=== PATIENT | female | born 1995 | race Caucasian/White ===

== ENCOUNTER 2017-06-08 06:44 | Inpatient (IN) | payer BC, MEDICAID ==
[~2017-06-08] VITALS: Ht 162.6 cm; Wt 120.5 kg
[2017-06-10] MEDS ORDERED: OXYTOCIN 30U/ 0.9% NaCL 500ML 500 ML IV ONE (22:01)
[2017-06-10] MEDS: D5%-LACTATED RINGERS 1,000 ML IV SCH (22:01)
[2017-06-10] MEDS ORDERED: OXYTOCIN 30U/ 0.9% NaCL 500ML 500 ML IV PRN (22:01)
[2017-06-10 22:04] VITALS: BP 136/77
[2017-06-10] MEDS: LACTATED RINGERS 1,000 ML IV SCH (22:10)
[2017-06-10] MEDS ORDERED: CALCIUM CARBONATE 500 MG TAB.CHEW PO PRN (22:30)
[2017-06-10] MEDS ORDERED: ONDANSETRON 2MG/ML, 2ML IVPush PRN (22:30)
[2017-06-10] MEDS ORDERED: FENTANYL PF 100 MCG/2ML IV PRN (22:30)
[2017-06-10 22:31] LABS: BASOPHILS # (AUTO) 0.04 x10^3/uL (0-0.3); BASOPHILS % (AUTO) 0 % (0-1); EOSINOPHILS # (AUTO) 0.08 x10^3/uL (0-0.8); EOSINOPHILS % (AUTO) 1 % (1-7); LYMPHOCYTES # (AUTO) 1.49 x10^3/uL (1-6.1); LYMPHOCYTES % (AUTO) 14 % (22-44); MD NO; MEAN CORPUSCULAR HEMOGLOBIN 28.4 pg (27.0-34.8); MEAN CORPUSCULAR HGB CONC 33.2 g/dL (32.4-35.8); MEAN CORPUSCULAR VOLUME 85.6 fL (80-100); MEAN PLATELET VOLUME 10.8 fL (7.4-10.4); MONOCYTES # (AUTO) 0.51 x10^3/uL (0-1.4); MONOCYTES % (AUTO) 5 % (2-9); NEUTROPHILS # (AUTO) 8.83 x10^3/uL (1.8-8.0); NEUTROPHILS % (AUTO) 81 % (42-75); PLATELET COUNT 221 x10^3/uL (130-400); RED BLOOD COUNT 4.23 x10^6/uL (3.82-5.3); RED CELL DISTRIBUTION WIDTH 14.5 % (9.6-15.2)
[2017-06-10] MEDS ORDERED: LIDOCAINE 1%, 20ML ONE (22:44)
[2017-06-10] MEDS ORDERED: NEWBORN KIT ONE (22:44)
[2017-06-10] MEDS ORDERED: MISOPROSTOL 200 MCG TABLET ONE (22:45)
[2017-06-10] MEDS ORDERED: OXYTOCIN 30U/ 0.9% NaCL 500ML 500 ML ONE (22:45)
[2017-06-10] MEDS ORDERED: FENTANYL PF 100 MCG/2ML ONE (23:09)
[2017-06-10] MEDS: FENTANYL PF 100 MCG/2ML IVPush PRN (23:11)
[2017-06-11] MEDS ORDERED: FENTANYL PF 100 MCG/2ML ONE ×2 (00:11→07:44)
[2017-06-11] MEDS: FENTANYL PF 100 MCG/2ML IVPush PRN (00:14)
[2017-06-11] MEDS ORDERED: BUPIVACAINE 0.25% ONE ×3 (00:23→07:44)
[2017-06-11] MEDS ORDERED: FENTANYL/BUPIV./NS/PF 250 ML EPIDCONT ONE (00:23)
[2017-06-11] MEDS ORDERED: FENTANYL/BUPIV./NS/PF 250 ML EPIDCONT SCH (01:01)
[2017-06-11] MEDS: LACTATED RINGERS 1,000 ML IV SCH ×3 (01:01→15:22)
[2017-06-11] MEDS ORDERED: LACTATED RINGERS 1,000 ML IVBOLUS PRN (01:30)
[2017-06-11] MEDS: D5%-LACTATED RINGERS 1,000 ML IV SCH (03:12)
[2017-06-11 07:15] VITALS: BP 137/72
[2017-06-11] MEDS ORDERED: PREN1TAB60 PO (08:01)
[2017-06-11] MEDS ORDERED: ACETAMINOPHEN 325 MG TABLET ONE (10:23)
[2017-06-11] MEDS ORDERED: ACETAMINOPHEN 325 MG TABLET PO PRN (10:30)
[2017-06-11] MEDS ORDERED: MISOPROSTOL 200 MCG TABLET SL PRN (12:00)
[2017-06-11] MEDS ORDERED: ONDANSETRON 2MG/ML, 2ML IV PRN (12:00)
[2017-06-11] MEDS ORDERED: OXYcodone/APAP 5/325MG TABLET PO PRN ×2 (12:00)
[2017-06-11] MEDS ORDERED: GLYCERIN ADULT SUPP PR PRN (12:00)
[2017-06-11] MEDS ORDERED: MAGNESIUM HYDROXIDE 8%, 30ML UDC PO PRN (12:00)
[2017-06-11] MEDS ORDERED: METHYLERGONOVINE 0.2 MG/ML IM PRN (12:00)
[2017-06-11] MEDS: OXYTOCIN 30U/ 0.9% NaCL 500ML 500 ML IV SCH ×2 (15:22→21:50)
[2017-06-11 15:40] VITALS: BP 116/68
[2017-06-11 17:58] VITALS: BP 110/73
[2017-06-11] MEDS: PRENATAL VIT/IRON/FA 1 EACH TABLET PO SCH (18:05)
[2017-06-11 19:30] VITALS: BP 144/63
[2017-06-11 19:37] LABS: MEAN CORPUSCULAR HEMOGLOBIN 28.8 pg (27.0-34.8); MEAN CORPUSCULAR HGB CONC 33.6 g/dL (32.4-35.8); MEAN CORPUSCULAR VOLUME 85.7 fL (80-100); MEAN PLATELET VOLUME 10.5 fL (7.4-10.4); PLATELET COUNT 215 x10^3/uL (130-400); RED BLOOD COUNT 3.31 x10^6/uL (3.82-5.3); RED CELL DISTRIBUTION WIDTH 14.8 % (9.6-15.2)
[2017-06-11 19:59] LABS: BASOPHILS # (AUTO) 0.01 x10^3/uL (0-0.3); BASOPHILS % (AUTO) 0 % (0-1); EOSINOPHILS # (AUTO) 0.06 x10^3/uL (0-0.8); EOSINOPHILS % (AUTO) 0 % (1-7); LYMPHOCYTES # (AUTO) 1.21 x10^3/uL (1-6.1); LYMPHOCYTES % (AUTO) 7 % (22-44); MD SCAN; MONOCYTES # (AUTO) 0.81 x10^3/uL (0-1.4); MONOCYTES % (AUTO) 5 % (2-9); NEUTROPHILS % (AUTO) 88 % (42-75)
[2017-06-11 20:50] VITALS: BP 125/77
[2017-06-12 00:02] VITALS: BP 121/80
[2017-06-12 04:12] VITALS: BP 115/79
[2017-06-12 08:00] VITALS: BP 114/75
[2017-06-12] MEDS: DOCUSATE 100 MG CAPSULE PO PRN (08:46)
[2017-06-12] MEDS: IBUPROFEN 600 MG TABLET PO PRN ×2 (08:46→17:50)
[2017-06-12] MEDS: PRENATAL VIT/IRON/FA 1 EACH TABLET PO SCH (08:46)
[2017-06-12 11:10] LABS: BASOPHILS # (AUTO) 0.03 x10^3/uL (0-0.3); BASOPHILS % (AUTO) 0 % (0-1); EOSINOPHILS # (AUTO) 0.13 x10^3/uL (0-0.8); EOSINOPHILS % (AUTO) 1 % (1-7); LYMPHOCYTES # (AUTO) 1.43 x10^3/uL (1-6.1); LYMPHOCYTES % (AUTO) 11 % (22-44); MD NO; MEAN CORPUSCULAR HEMOGLOBIN 28.3 pg (27.0-34.8); MEAN CORPUSCULAR HGB CONC 32.9 g/dL (32.4-35.8); MEAN CORPUSCULAR VOLUME 85.8 fL (80-100); MEAN PLATELET VOLUME 10.1 fL (7.4-10.4); MONOCYTES # (AUTO) 0.68 x10^3/uL (0-1.4); MONOCYTES % (AUTO) 5 % (2-9); NEUTROPHILS # (AUTO) 10.51 x10^3/uL (1.8-8.0); NEUTROPHILS % (AUTO) 82 % (42-75); PLATELET COUNT 211 x10^3/uL (130-400); RED BLOOD COUNT 2.93 x10^6/uL (3.82-5.3); RED CELL DISTRIBUTION WIDTH 15.1 % (9.6-15.2)
[2017-06-12 20:00] VITALS: BP 121/60
[2017-06-13] MEDS: IBUPROFEN 600 MG TABLET PO PRN ×2 (00:27→10:42)
[2017-06-13] MEDS: DOCUSATE 100 MG CAPSULE PO PRN ×2 (00:27→10:41)
[2017-06-13] MEDS ORDERED: MEASLES,MUMPS&RUBELLA VACC/PF 0.5 ML SQ-VACC ONE (01:00)
[2017-06-13 07:00] VITALS: BP 121/78
[2017-06-13] MEDS: PRENATAL VIT/IRON/FA 1 EACH TABLET PO SCH (10:42)
[2017-06-13] MEDS ORDERED: IBUP-1222 PO (11:58)
== END 2017-06-13 14:10 | disposition home or self-care (01) | DRG 775 ==
LOC: EDSTATUS 06:44 → LDIP 06-10 21:44 → 2NW 06-11 14:44
PROVIDERS: ADMIT Obstetrics & Gynecology; ATTEND Obstetrics & Gynecology
PROC: 10E0XZZ Delivery of Products of Conception, External Approach (ICD-10-PCS; principal; 2017-06-11)
PROC: 0KQM0ZZ Repair Perineum Muscle, Open Approach (ICD-10-PCS; 2017-06-11)
PROC: 3E0R3BZ Introduction of Anesthetic Agent into Spinal Canal, Percutaneous Approach (ICD-10-PCS; 2017-06-11)
PROC: 00HU33Z Insertion of Infusion Device into Spinal Canal, Percutaneous Approach (ICD-10-PCS; 2017-06-11)
DX: O76 Abnormality in fetal heart rate and rhythm complicating labor and delivery (principal); E66.9 Obesity, unspecified; O70.1 Second degree perineal laceration during delivery; O77.0 Labor and delivery complicated by meconium in amniotic fluid; O99.214 Obesity complicating childbirth; Z37.0 Single live birth; Z3A.40 40 weeks gestation of pregnancy; O48.0 Post-term pregnancy
CPT/HCPCS: 36415; 82803; 84443; 85025; 86850; 86900; J3010; J2590; J7120; J7121